=== PATIENT | male | born 1940 | race Caucasian/White ===

== ENCOUNTER → 2017-01-09 | Outpatient (CLI) | payer MEDICARE, OTHER ==
--- NOTE | ~2017-01-09 | MR165 ---
[facility] A Service of [facility] RADIOLOGY TEXT RESULTS PATIENT: DRAKE RAGLAND LOCATION: [facility] : 40 UNIT #: [id number] AGE: [address]: FRIEDA LOZANO MD SEX: M ORDER DR: [id number] [address] [address] [id number] O MR#: [id number] Acc #: [id number] NAME: DRAKE RAGLAND : 1940 SEX: M STUDY DATE/TIME: 01/09/2017 15:29 UNIT: [facility] ROOM: STUDY DESCRIPTION: MR Shoulder Wo Contrast Rt Attending Physician: Frieda Lozano M.D. Referring Physician: Frieda Lozano M.D. Primary Care Physician: Nino Nava M.D. MRI CENTER REPORT This report is preliminary unless electronic signature is present. EXAM Right shoulder MRI without contrast, 01/09/2017. HISTORY 76-year-old male with right shoulder pain and limited range of motion since August 2016. Pulled on a chainsaw and felt a pop. No prior right shoulder surgery. COMPARISON Right shoulder x-rays, 01/03/2017. TECHNIQUE Routine, unenhanced, multiplanar, multisequence, high-field MR imaging of the right shoulder was performed. FINDINGS Examination is limited by motion artifact on multiple sequences. Allowing for this, there is jsad-jl-dfyxmmsu supraspinatus and infraspinatus tendinopathy. There is some minimal partial thickness bursal surface fraying of the anterior insertional supraspinatus tendon. However, this involves less than 10% of the tendon thickness. No high-grade partial-thickness or full-thickness rotator cuff tear identified. Teres minor and subscapularis tendons are intact. The long biceps tendon is intact and well positioned in the bicipital groove. No evidence of a labral tear. Glenohumeral articular cartilage is intact. No glenohumeral effusion. Eaav-pq-ytmrbvmo degenerative change of the acromioclavicular joint. No significant supraspinatus outlet impingement. No subacromial spur. No significant inflammation of the subacromial/subdeltoid bursa. Bone marrow signal is within expected limits. Visualized musculature is [facility] A Service of [facility] RADIOLOGY TEXT RESULTS PATIENT: DRAKE RAGLAND LOCATION: [facility] : 40 UNIT #: [id number] AGE: [address]: FRIEDA LOZANO MD SEX: M ORDER DR: unremarkable. IMPRESSION 1. Jkoo-vt-lkwrdxyy supraspinatus and infraspinatus tendinopathy. There is minimal partial-thickness bursal surface fraying of the anterior insertional supraspinatus tendon. However, this involves less than 10% of the tendon thickness. No evidence of a high-grade partial-thickness or full-thickness rotator cuff tear. 2. No significant labral pathology allowing for motion limitations. 3. Hcam-vc-pmmmpato acromioclavicular joint arthrosis. Dictated by... Laci Palmer M.D. THIS IS AN ELECTRONICALLY VERIFIED REPORT Laci Palmer M.D. at 01/11/2017 3:56 PM LEEANN/ayanna TD: 01/10/2017 12:34 JOB #: [id number] MRI CENTER REPORT
== END | disposition home or self-care (01) ==
LOC: SMRI 15:07
DX: M75.91 Shoulder lesion, unspecified, right shoulder (principal); M19.011 Primary osteoarthritis, right shoulder
CPT/HCPCS: 73221